=== PATIENT | female | born 1995 ===

== ENCOUNTER → 2017-06-30 | Outpatient (REF) | payer OTHER | LOC: M LAB REF 16:31 | DX: J11.1 Influenza due to unidentified influenza virus with other respiratory manifestations (principal) ==

== ENCOUNTER → 2018-03-15 | Outpatient (REF) | payer OTHER | LOC: M LAB REF 17:48 | DX: J02.9 Acute pharyngitis, unspecified (principal) | CPT/HCPCS: 87081 ==